=== PATIENT | male | born 1985 | race African-American/Black ===

== ENCOUNTER 2017-04-03 11:51 | Emergency (ER) | payer OTHER ==
[~2017-04-03] VITALS: Ht 175.3 cm; Wt 81.7 kg
[~2017-04-03 11:51] MED LIST: ACETAMINOPHEN-1 EAC1 PO; APAP/CODEINE ELI5 ML PO; DILANTIN100 MG PO; FLEXERIL PO; NAPROSYN500 MG PO; NOHOMEMEDICATIONS; NORCO 5-325 TA1 EACH PO; ZPAK PO
[2017-04-03] MEDS ORDERED: TRAMADOL 50 MG50 MG PO (12:04)
== END 2017-04-03 12:10 | disposition home or self-care (01) ==
LOC: ER 11:51
DX: G89.29 Other chronic pain (principal); M54.9 Dorsalgia, unspecified; F17.210 Nicotine dependence, cigarettes, uncomplicated

== ENCOUNTER 2017-08-28 11:52 | Emergency (ER) | payer OTHER ==
[~2017-08-28] VITALS: Ht 175.3 cm; Wt 81.7 kg
--- NOTE | ~2017-08-28 | EKG ---
[place] [address] [facility] [place] [address] ELECTROCARDIOGRAM REPORT Name: TK SNOW Room #: [facility]#: [id number] Admission: 08/28/17 Attend Phys: Discharge: 08/28/17 Date of : 87 Report #: [id number] THIS REPORT FOR: //name// [facility] ED Test Date: 2017-08-28 Test Time: 12:23:05 Pat Name: TK SNOW Department: Room: Gender: M [employer] In[employer]: HUMERA : 1985 Requested By: Nia Villarreal Order Number: [id number] MD: Chriss Schaeffer Measurements Intervals [place] Rate: 83 P: 20 NV: 166 QRS: 64 QRSD: 83 T: 2 QT: 354 QTc: 416 Interpretive Statements Sinus rhythm ST elev, probable normal early repol pattern No previous ECG available for comparison Electronically Signed On 08-28-2017 13:02:00 CDT by Chriss Schaeffer [email or web address] <ELECTRONICALLY SIGNED> By: Chriss Schaeffer MD, [facility] 08/28/17 1302 1223 1223 Chriss Schaeffer MD, FACC /EPI
[~2017-08-28 11:52] MED LIST changes: +TRAMADOL 50 MG50 MG PO
[2017-08-28] MEDS ORDERED: NORFLEX100 MG PO (12:37)
[2017-08-28] MEDS ORDERED: NAPROSYN500 MG PO (12:37)
[2017-08-28 13:01] VITALS: BP 130/85
== END 2017-08-28 13:02 | disposition home or self-care (01) ==
LOC: ER 11:52
DX: S16.1XXA Strain of muscle, fascia and tendon at neck level, initial encounter (principal); S39.012A Strain of muscle, fascia and tendon of lower back, initial encounter; M70.99 Unspecified soft tissue disorder related to use, overuse and pressure multiple sites; F17.210 Nicotine dependence, cigarettes, uncomplicated; G89.29 Other chronic pain; X50.0XXA Overexertion from strenuous movement or load, initial encounter; Y92.89 Other specified places as the place of occurrence of the external cause; Y93.89 Activity, other specified; Y99.8 Other external cause status